=== PATIENT | female | born 1980 | race Caucasian/White ===

== ENCOUNTER 2016-08-31 19:55 | Observation (INO) | payer OTHER ==
[2016-08-31] MEDS ORDERED: ROCEPHIN 1 Gm-D5w 50 ml Bag** 1 G/50 ML IVPB IV SCH (20:15)
[2016-08-31] MEDS: Lactated Ringers 1,000 ML IV SCH (20:18)
[2016-08-31] MEDS ORDERED: POTASSIUM CHLORIDE 20 mEq IN WATER 100ML 200 ML IV ONE (21:29)
[2016-08-31] MEDS ORDERED: Levofloxacin 500 MG Tablet PO STA (21:36)
[2016-08-31] MEDS ORDERED: Lactated Ringers 1,000 ML IV ONE (21:38)
[2016-08-31] MEDS ORDERED: Zofran 4 MG/2 ML VIAL IV PRN (21:38)
[2016-08-31] MEDS ORDERED: Nicoderm CQ 21 MG TOP SCH (21:45)
[2016-08-31] MEDS ORDERED: Levofloxacin 500 MG Tablet ONE (22:02)
[2016-08-31] MEDS: TORAdol 30 mg Injection IV PRN (22:56)
[2016-08-31] MEDS: POTASSIUM CHLORIDE 20 mEq IN WATER 100ML 100 ML IV SCH (23:02)
[2016-09-01] MEDS: POTASSIUM CHLORIDE 20 mEq IN WATER 100ML 100 ML IV SCH (01:12)
[2016-09-01] MEDS: TYLENOL 325 MG PO PRN ×2 (01:18→08:33)
[2016-09-01] MEDS: TORAdol 30 mg Injection IV PRN (06:01)
[2016-09-01 06:04] LABS: ANION GAP 9.4 MEQ/L (5-15); BLOOD UREA NITROGEN 11 mg/dL (9-20); CHLORIDE 103 mEq/L (98-107); Carbon Dioxide 28.6 mEq/L (21-32); Glucose 100 MG/DL (70-110); Potassium 3.9 mEq/L (3.5-5.1); SODIUM 137 mEq/L (136-145)
[2016-09-01 07:17] VITALS: O2SAT 98
[2016-09-01] MEDS: Lactated Ringers 1,000 ML IV SCH ×2 (08:28→08:30)
[2016-09-01] MEDS ORDERED: Levofloxacin 500 MG Tablet PO SCH (10:00)
[2016-09-01] MEDS: Magnesium 1 Gm / 100 Ml D5W*** 100 ML IV SCH ×2 (10:36→11:51)
[2016-09-01] MEDS ORDERED: Phenergan 25 MG INJ IV ONE (10:59)
[2016-09-01] MEDS ORDERED: DECADRON 10MG INJ. IV ONE (10:59)
--- NOTE | 2016-09-01 11:04 | PCM.DCORD ---
- Discharge Discharge Date: 09/01/16 Disposition: Home, Self-Care Condition: Stable Prescriptions: New Ibuprofen 600 mg PO TID PRN #30 tablet PRN Reason: Pain Levofloxacin [Levofloxacin 500 MG Tablet] 500 mg PO DAILY #6 tablet Promethazine HCl 25 mg [Phenergan 25 mg] 25 mg PO Q4H PRN #12 tablet PRN Reason: Nausea/Vomiting Continue Aripiprazole 10 mg [Abilify 10 MG] 15 mg PO DAILY Fluoxetine HCl [Prozac] 10 mg PO DAILY Instructions: Hypokalemia Additional Instructions: BMP and magnesium blood draw next week at follow up appointment ok to discharge after mag silveira completed Follow up with: RICHARD ORLANDO [Primary Care Provider] - 1 Week
--- NOTE | 2016-09-01 11:09 | PCM.HP ---
History of Present Illness - Chief Complaint Chief Complaint: Hypokalemia, UTI Date: 09/01/16 History of Present Illness: is a 36 year old female. who has been feeling bad for about a week she has been having back pain and chronically has flairs and is having pain in the right flank but also radiating across back and down the right leg she has had sciatica in the past she states and this has occurred now for 1 week. She has also been having headaches and nausea and dysuria. She has not been eating well for the last week. She was evaluated in [facility] and had blood work that showed critical potassium repeat confirmed this and she had infusion last night. She is still having the headache today some nausea no vomiting and still having the back pain. - Review of Systems Constitutional: Fever, Chills, Fatigue Eyes: No Symptoms Respiratory: No Cough, No Short Of Breath Cardiac: No Chest Pain, No Edema, No Palpitations Abdominal/Gastrointestinal: Nausea, No Abdominal Pain, No Vomiting, No Diarrhea Genitourinary Symptoms: Dysuria, Frequency, Urgency Musculoskeletal: Arthralgias, Back Pain, No Neck Pain, No Fall, No Joint Redness , No Joint Pain Skin: No Cellulitis, No Rash Neurological: Dizziness, Headache, No Focal Weakness Psychological: Depression Medications & Allergies Home Medications: Home Medication List Aripiprazole 10 mg [Abilify 10 MG] 15 mg PO DAILY 08/31/16 [History Confirmed 08/31/16] Fluoxetine HCl [Prozac] 10 mg PO DAILY 08/31/16 [History Confirmed 08/31/16] Ibuprofen 600 mg PO TID PRN #30 tablet 09/01/16 [Rx] Levofloxacin [Levofloxacin 500 MG Tablet] 500 mg PO DAILY #6 tablet [Rx] Promethazine HCl 25 mg [Phenergan 25 mg] 25 mg PO Q4H PRN #12 tablet 09/01 [Rx] Allergies/Adverse Reactions: Allergies Allergy/AdvReac Type Severity Reaction Status Date / Time cefaclor [From [facility]] Allergy Mild Itching Verified 04/27/15 20:19 Penicillins Allergy Mild Itching Verified 04/27/15 20:19 tramadol AdvReac Itching Verified 04/27/15 20:19 - Past Medical History Past Medical History: No Neurological History: Migraines ENT History: No Pertinent History Cardiac History: No Pertinent History Respiratory History: Other Endocrine Medical History: No Pertinent History Musculoskelatal History: Other GI Medical History: GERD History: No Pertinent History Pyscho-Social History: Anxiety, Depression Reproductive Disorders: No Pertinent History Comment: spiratic collasped lung, bulging disc in her back - Female History Are you now?: No - Past Surgical History Past Surgical History: Yes Neuro Surgical History: No Pertinent History Cardiac History: No Pertinent History Respiratory Surgery: No Pertinent History GI Surgical History: Cholecystectomy Genitourinary Surgical Hx: No Pertinent History Musculskeletal Surgical Hx: No Pertinent History Female Surgical History: Section, Tubal Ligation Other Surgical History: d and c - Social History Smoking Status: Current every day smoker How long have you smoked: 19 years Exposure to second hand smoke: No Alcohol: None Drug Use: marijuana - Physical Exam Vital Signs: Vital Signs - 24 hr Temp Pulse Resp BP Pulse Ox 09/01/16 08:00 20 09/01/16 07:16 99.6 F 68 20 98/55 98 09/01/16 04:00 98.2 F 72 24 88/50 97 09/01/16 00:00 100.0 F 101 H 16 102/54 97 08/31/16 20:52 99.3 F 96 H 16 89/60 97 General Appearance: no apparent distress Neurologic Exam: alert, oriented x 3, cooperative Eye Exam: No scleral icterus, No pale conjunctivae Ears, Nose, Throat Exam: moist mucous membranes Neck Exam: non-tender, supple Respiratory Exam: normal breath sounds, lungs clear Cardiovascular Exam: regular rate/rhythm, normal heart sounds, normal peripheral pulses, No murmur, No irregular, No edema Gastrointestinal/Abdomen Exam: soft, normal bowel sounds, No tenderness, No distention, No guarding, No ecchymosis, No rebound Back Exam: normal inspection, other (right flank tenderness and parapinal muscle tenderness no point tenderness over any vertebra.) Extremity Exam: normal inspection, No calf tenderness, No pedal edema Skin Exam: warm, dry, No rash Results - Labs Lab/Micro Results: Lab Results-Last 24 Hours 08/31/16 08/31/16 09/01/16 Range/Units 20:30 20:30 05:10 Sodium 137 (136-145) mEq/L Potassium 2.8 L* 3.9 (3.5-5.1) mEq/L Chloride 103 (98-107) mEq/L Carbon Dioxide 28.6 (21-32) mEq/L Anion Gap 9.4 (5-15) MEQ/L BUN 11 (9-20) mg/dL Creatinine 0.74 (0.55-1.30) mg/dl Estimated GFR > 60 ML/MIN Glucose 100 (70-110) MG/DL Calcium 7.9 L (8.5-10.1) mg/dL Magnesium 1.9 (1.8-2.4) mg/dL 09/01/16 Range/Units 05:10 Sodium (136-145) mEq/L Potassium (3.5-5.1) mEq/L Chloride (98-107) mEq/L Carbon Dioxide (21-32) mEq/L Anion Gap (5-15) MEQ/L BUN (9-20) mg/dL Creatinine (0.55-1.30) mg/dl Estimated GFR ML/MIN Glucose (70-110) MG/DL Calcium (8.5-10.1) mg/dL Magnesium 1.5 L (1.8-2.4) mg/dL Assessment/Plan (1) Acute hypokalemia Current Visit: Yes Status: Acute Assessment & Plan: resolved repeat this week at follow up appointment. Code(s): E87.6 - HYPOKALEMIA (2) Hypomagnesemia Current Visit: Yes Status: Acute Assessment & Plan: mild replacing Code(s): E83.42 - HYPOMAGNESEMIA (3) UTI (urinary tract infection) Current Visit: Yes Status: Acute Assessment & Plan: levaquin 7 days awaiting urine culture results. Code(s): N39.0 - URINARY TRACT INFECTION, SITE NOT SPECIFIED (4) Sciatica Current Visit: Yes Status: Acute Qualifiers: Laterality: right Qualified Code(s): M54.31 - Sciatica, right side Assessment & Plan: check lumbar films no point tenderness no wbc elevation the pain is more in the right flank and paraspinal but also has pain radiating down her leg likely fever source is UTI if not resolving consider further evaluation rule out deep seated infection. with this and persistent headache and history of migraines initially not improved with toradol X2 will give dose of phenergan and 6mg decadron monitor for response. Code(s): M54.30 - SCIATICA, UNSPECIFIED SIDE (5) Depression Current Visit: Yes Status: Chronic Assessment & Plan: continue home meds Code(s): F32.9 - MAJOR DEPRESSIVE DISORDER, SINGLE EPISODE, UNSPECIFIED
[2016-09-01 12:14] VITALS: BP 95/52; PULSE 75
--- NOTE | 2016-09-01 20:47 | XRAY ---
Indication: Back pain. Comparison: None 5 views of the lumbar spine demonstrates 5 lumbar vertebral segments in normal alignment with minimal L3-L5 anterior endplate spurring, mild bilateral L5-S1 degenerative facet arthropathy, a few calcified splenic granulomas, and multiple right abdominal surgical clips. No other bony, articular, or soft tissue abnormalities. Comment: Preliminary interpretation was made by [facility]. No critical discrepancy.
== END 2016-09-01 15:00 | disposition home or self-care (01) ==
LOC: MED SURG 19:55
PROVIDERS: ADMIT Family Medicine; ATTEND Family Medicine
DX: E87.6 Hypokalemia (principal); E83.42 Hypomagnesemia; N39.0 Urinary tract infection, site not specified; M54.31 Sciatica, right side; F32.9 Major depressive disorder, single episode, unspecified; K21.9 Gastro-esophageal reflux disease without esophagitis; Z79.899 Other long term (current) drug therapy; F41.9 Anxiety disorder, unspecified; F12.90 Cannabis use, unspecified, uncomplicated
CPT/HCPCS: 36415; 72110; 80048; 83735; 84132; 85652; 87077; 87086; 87186; 93268; G0378; J1100; J1885; J2405; J2550; J3475; J3480; A9270-GY